=== PATIENT | male | born 1980 | race Caucasian/White ===

== ENCOUNTER 2023-09-29 13:38 | Outpatient (CLI) | payer OTHER, SELFPAY ==
--- NOTE | ~2023-09-29 | XR_ITS ---
3 VIEWS LUMBAR SPINE Ordering provider: Mihai Gutierrez, RAIZA History: . lumbago with sciatica . Comparison: None. FINDINGS: VERTEBRAL BODIES: No visible fracture or subluxation. Degenerative changes of the spine. DISK SPACES: Narrowing of the disc L4-L5.. 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 SOFT TISSUES: Normal. IMPRESSION: No acute osseous abnormality lumbar spine. Reviewed, dictated and finalized at location A.
== END 2023-09-29 13:39 | disposition home or self-care (01) ==
PROVIDERS: PCP Physician Assistant; Visit Provider Physician Assistant
DX: M54.41 Lumbago with sciatica, right side (principal)
CPT/HCPCS: 72100

== ENCOUNTER 2023-10-25 13:22 | Outpatient (RCR) | payer OTHER, SELFPAY ==
--- NOTE | 2023-10-25 13:37 | PTOPEVAL1 ---
Assessment and note entered by Sandro Ramirez Evaluation Information Assessment Status Evaluation Diagnosis lumbago with sciatica, right side ICD-10 Condition Codes (PT) Pain in low back M54.50 Onset 09/22/23 Subjective Information Pt. reports he has had progressive back pain since 2019. He describes his pain going across the low back and down the back of the right leg on occasion. He reports that the back pain is constant, but the leg pain will come and go. 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 He reports that he can only stand for 30 minutes before he has to sit due to pain. He reports that he cannot sit in one position for more than 5 minutes without increasing pain. He reports that he loses about 25-50% of sleep due to pain. He reports that he cannot work due to his back pain. He reports that he can complete all IADL's despite his pain. He reports that he cannot make any adjustments that will ease his pain. He does take 800mg ibuprofen and Flexural for pain, which helps slightly. He reports that his goal for therapy is to reduce his pain. Reported Pain Level Pain Score 4: Self Report Assessment PT Clinical Summary Pt. is a 43 year old male who enters the clinic with low back pain effecting the right l.e. He presents with impaired l.e. strength, impaired abdominal strength, pain, impaired postural awareness, impaired flexibility and functional decline. Continued skilled PT is indicated in order to improve these areas to allow the pt. to be able to participate in all IADL's with improved comfort and efficiency. Plan of Care Interventions Electrical Stimulation,Gait Training,Hot Pack/Cold Pack,Manual Therapy,Mechanical Traction,Neuro Re- education,Patient/Caregiver Educati,Therapeutic Activities,Therapeutic Exercise PT Services Indicated Yes Treatment Frequency and 2x/week x 10 visits Duration These treatments will address the objective and functional deficits as defined above. The patient will be advanced safely and appropriately in order for the patient to progress towards his/her prior level of function. Additional exercises will be introduced and as well as a comprehensive home exercise program upon discharge, if needed, ?to ensure carryover of functional gains achieved in the clinic. This treatment plan has been reviewed and agreement upon by the patient.
--- NOTE | 2023-10-25 13:38 | OPREHPOC ---
Outpatient Therapy Plan of Care This is a Multidisciplinary Plan of Care that may contain components documented by all disciplines (PT, OT, and ST.) PT Problem 1 PT Problem #1 Knowledge Deficit PT Goal 1 Goal / Goal Update Pt. will be independent with a HEP addressing trunk mobility and core strength Target Visit 2 PT Problem 2 PT Problem #2 Pain PT Goal 1 Goal / Goal Update Pt. will report pain levels at 4/10 at worst with prolonged standing activities Target Visit 10 PT Problem 3 PT Problem #3 Impaired Strength PT Goal 1 Goal / Goal Update Pt. will present with good+ upper and lower abdominal strength in order to allow for improved lumbar stability when maintaining sitting and standing for prolonged periods Target Visit 10 PT Problem 4 PT Problem #4 Impaired Functional Mobil PT Goal 1 Goal / Goal Update Pt. will demonstrate safe body mechanics with lifting object weight 20# or greater floor to waist for 10 reps without cuing and pain less than 3/10. Pt. will present with Oswestry score less than 35% limitation indicating overall functional improvement. Target Visit 10
--- NOTE | 2023-10-28 14:04 | PCPTNOTE ---
Patient called & cancelled scheduled appointment this date. [ He was kicked out of his house last night and doesnt want to reschedule at this time]
--- NOTE | 2023-12-27 17:47 | PCPTNOTE ---
Hector Angleslieeitan attended his initial evaluation on 10/25/23. He was provided a home exercise program on this date and has failed to return to the clinic or contact the clinic. He will be discharged from our care at this time. Refer to the initial evaluation for discharge status. Sandro Ramirez, MPT
== END 2023-10-25 14:57 | disposition home or self-care (01) ==
LOC: CHSPT 13:22
PROVIDERS: Visit Provider Physician Assistant
DX: M54.41 Lumbago with sciatica, right side (principal)
CPT/HCPCS: 97110; 97161